=== PATIENT | male | born 1935 | race Caucasian/White ===

== ENCOUNTER 2016-05-29 10:49 | Outpatient (CLI) | payer MEDICARE, OTHER ==
[2016-01-20 10:56] VITALS: BP 135/74
[2016-05-29 11:17] LABS: BASOPHILS % 0.2 (0.0-1.5); EOSINOPHILS % 3.2 % (0.0-6.8); LYMPHOCYTES # 0.8 # k/uL (0.6-4.0); MEAN CORPUSCULAR HEMOGLOBIN 34.5 pg (28.0-34.0); MONOCYTES # 0.4 # k/uL (0.0-0.9); MONOCYTES % 9.5 % (0.0-11.0); NEUTROPHILS # 3.3 # k/uL (1.4-7.7)
[2016-05-29 11:47] LABS: eGFR (African) > 60; eGFR (Non-African) > 60
== END 2016-05-29 10:50 ==
LOC: LAB 10:49
PROVIDERS: ATTEND Internal Medicine Gastroenterology
DX: R18.8 Other ascites (principal); K74.60 Unspecified cirrhosis of liver; K72.90 Hepatic failure, unspecified without coma
CPT/HCPCS: 36415; 80053; 85025

== ENCOUNTER 2016-07-05 12:00 | Outpatient (CLI) | payer MEDICARE, OTHER ==
[2016-01-20 10:56] VITALS: BP 135/74
[2016-07-05 12:14] LABS: BASOPHILS % 0.2 (0.0-1.5); EOSINOPHILS % 1.9 % (0.0-6.8); LYMPHOCYTES # 0.7 # k/uL (0.6-4.0); MEAN CORPUSCULAR HEMOGLOBIN 33.8 pg (28.0-34.0); MONOCYTES # 0.3 # k/uL (0.0-0.9); MONOCYTES % 6.6 % (0.0-11.0); NEUTROPHILS # 3.8 # k/uL (1.4-7.7)
[2016-07-05 12:42] LABS: eGFR (African) 41; eGFR (Non-African) 34
== END 2016-07-05 12:01 ==
LOC: LAB 12:00
PROVIDERS: ATTEND Internal Medicine Gastroenterology
DX: K74.60 Unspecified cirrhosis of liver (principal); R18.8 Other ascites; E87.1 Hypo-osmolality and hyponatremia; K72.90 Hepatic failure, unspecified without coma
CPT/HCPCS: 36415; 80053; 85025

== ENCOUNTER 2016-07-16 10:07 | Outpatient (CLI) | payer MEDICARE, OTHER ==
[2016-01-20 10:56] VITALS: BP 135/74
[2016-07-16 11:00] LABS: eGFR (African) > 60; eGFR (Non-African) > 60
== END 2016-07-16 10:10 ==
LOC: LAB 10:07
PROVIDERS: ATTEND Internal Medicine Nephrology
DX: E87.1 Hypo-osmolality and hyponatremia (principal)
CPT/HCPCS: 36415; 80053

== ENCOUNTER 2016-07-20 12:33 | Outpatient (CLI) | payer OTHER ==
[2016-01-20 10:56] VITALS: BP 135/74
[2016-07-20 13:31] LABS: eGFR (African) > 60; eGFR (Non-African) > 60
== END 2016-07-20 12:34 ==
LOC: LAB 12:33
PROVIDERS: ATTEND Family Medicine
DX: E87.1 Hypo-osmolality and hyponatremia (principal)
CPT/HCPCS: 36415; 80048

== ENCOUNTER 2016-07-27 12:59 | Outpatient (CLI) | payer OTHER ==
[2016-01-20 10:56] VITALS: BP 135/74
[2016-07-27 13:50] LABS: eGFR (African) > 60; eGFR (Non-African) > 60
== END 2016-07-27 13:00 ==
LOC: LAB 12:59
PROVIDERS: ATTEND Family Medicine
DX: E87.1 Hypo-osmolality and hyponatremia (principal)
CPT/HCPCS: 36415; 80053

== ENCOUNTER 2016-08-03 14:38 | Outpatient (CLI) | payer OTHER ==
[2016-01-20 10:56] VITALS: BP 135/74
[2016-08-03 15:35] LABS: eGFR (African) > 60; eGFR (Non-African) > 60
[2016-08-03 16:30] LABS: MEAN CORPUSCULAR HEMOGLOBIN 35.5 pg (28.0-34.0); MEAN CORPUSCULAR VOLUME 98.9 fl (80.0-100.0)
[2016-08-03 17:03] LABS: BASOPHILS % 1 % (0-2); EOSINOPHILS % 4 % (0-7); MONOCYTES % 8 % (0-11); SEGMENTED NEUTROPHILS % 64 % (39-79)
== END 2016-08-03 14:40 ==
LOC: LAB 14:38
PROVIDERS: ATTEND Family Medicine
DX: E87.1 Hypo-osmolality and hyponatremia (principal)
CPT/HCPCS: 36415; 80053; 85025

== ENCOUNTER 2016-08-06 17:10 | Outpatient (CLI) | payer OTHER ==
[2016-01-20 10:56] VITALS: BP 135/74
[2016-08-06 17:44] LABS: eGFR (African) > 60; eGFR (Non-African) > 60
== END 2016-08-06 17:15 | disposition home or self-care (01) ==
LOC: LAB 17:10
PROVIDERS: ATTEND Family Medicine
DX: E87.1 Hypo-osmolality and hyponatremia (principal); K76.0 Fatty (change of) liver, not elsewhere classified; R74.0 Nonspecific elevation of levels of transaminase and lactic acid dehydrogenase [LDH]
CPT/HCPCS: 36415; 80053

== ENCOUNTER 2016-08-07 15:33 | Outpatient (CLI) | payer OTHER ==
[2016-01-20 10:56] VITALS: BP 135/74
[2016-08-07 16:49] LABS: APPEARANCE,URINE Clear (CLEAR); COLOR,URINE Yellow (YELLOW); OCCULT BLOOD,URINE Negative (NEGATIVE); PH URINE 6.5 (5.0 - 8.0)
[2016-08-07 17:06] LABS: eGFR (African) > 60; eGFR (Non-African) > 60
== END 2016-08-07 15:34 ==
LOC: NEPHRO 15:33
PROVIDERS: ATTEND Internal Medicine Nephrology
DX: E87.1 Hypo-osmolality and hyponatremia (principal)
CPT/HCPCS: 36415; 80053; 81002; 83930; 83935; 84133; 84300; G0463

== ENCOUNTER 2016-09-24 14:16 | Outpatient (CLI) | payer OTHER ==
[2016-01-20 10:56] VITALS: BP 135/74
[2016-09-24 15:04] LABS: eGFR (African) > 60; eGFR (Non-African) > 60
== END 2016-09-24 14:20 ==
LOC: LAB 14:16
PROVIDERS: ATTEND Family Medicine
DX: E78.00 Pure hypercholesterolemia, unspecified (principal); E87.1 Hypo-osmolality and hyponatremia
CPT/HCPCS: 36415; 80048; 80061

== ENCOUNTER 2016-10-22 14:19 | Outpatient (CLI) | payer OTHER ==
[2016-01-20 10:56] VITALS: BP 135/74
[2016-10-22 15:05] LABS: eGFR (African) > 60; eGFR (Non-African) > 60
== END 2016-10-22 14:20 ==
LOC: LAB 14:19
PROVIDERS: ATTEND Family Medicine
DX: E87.1 Hypo-osmolality and hyponatremia (principal); I10 Essential (primary) hypertension; R18.8 Other ascites; R74.0 Nonspecific elevation of levels of transaminase and lactic acid dehydrogenase [LDH]
CPT/HCPCS: 36415; 80053

== ENCOUNTER 2016-11-06 10:14 | Outpatient (CLI) | payer OTHER ==
[2016-01-20 10:56] VITALS: BP 135/74
[2016-11-06 10:26] LABS: BASOPHILS % 0.3 (0.0-1.5); EOSINOPHILS % 1.6 % (0.0-6.8); MONOCYTES % 4.1 % (0.0-11.0); NEUTROPHILS # 7.5 # k/uL (1.4-7.7)
[2016-11-06 10:33] LABS: eGFR (African) > 60; eGFR (Non-African) > 60
== END 2016-11-06 10:15 ==
LOC: LABRHC 10:14
PROVIDERS: ATTEND Family Medicine
DX: K75.9 Inflammatory liver disease, unspecified (principal); R74.0 Nonspecific elevation of levels of transaminase and lactic acid dehydrogenase [LDH]; I10 Essential (primary) hypertension; K72.10 Chronic hepatic failure without coma
CPT/HCPCS: 80053; 85025; 85610; 85730

== ENCOUNTER 2016-11-08 12:52 | Emergency (ER) | payer OTHER ==
[2016-11-08] MEDS ORDERED: INSULIN REGULAR, HUMAN 100 UNIT/ML 3ML VIAL IV ONE (13:10)
--- NOTE | 2016-11-08 13:25 | ED Physician Documentation ---
General Adult - HISTORIAN Historian: patient, spouse - HPI Stated Complaint: ? seizure Chief Complaint: General Adult Onset: days ago (7) Timing: better Severity: moderate Further Comments: yes (Pt is an 81 yo male with liver failure, chronic hyponatremia, hx MS, who has been having shaking (? seizure) activity, followed by stiffening on three occasions in the past week. Pt had hx seizures in childhood, but had not had them as an adult. Pt was seen at [facility] 2 days ago for paracentesis.) - ROS CONST: weakness EYES/ENT: none CVS/RESP: none GI/: none MS/SKIN/LYMPH: other (poorly healing wound L knee) NEURO/PSYCH: other (confusion) - PAST HX Past History: AMI, hypertension, other (CAD, Hyponatremia, Memory impairment, chronic liver failure) Surgeries/Procedures: cardiac bypass (2005), other (renal artery stent) Allergies/Adverse Reactions: Allergies Allergy/AdvReac Type Severity Reaction Status Date / Time Penicillins AdvReac Intermediate Unknown Verified 01/20/16 10:56 Home Medications: Ambulatory Orders Medication Instructions Recorded Valsartan [Diovan] 320 mg PO DAILY #30 u2 05/09/15 - SOCIAL HX Smoking History: other (smoking hx unknown) - FAMILY HX Family History: No (Parents both age 92, healthy late in life) - VITAL SIGNS Vital Signs: Vital Signs Temp Pulse Resp BP Pulse Ox 135/74 01/20/16 12:00 - REVIEWED ASSESSMENTS Nursing Assessment Reviewed: Yes Vitals Reviewed: Yes Progress - Progress Progress: NS 500 cc IVF Urine out = 1,050 ml with peñaloza cath Transfer to [facility] Dr[address] Juárez. - EKG/XRAY/CT EKG: NSR (HR=73; non-specific ST changes.) XRAY: chest (Left lung base presumed scarring. No gross effusion.) ED Results Lab/Radiology - Orders Orders: ED Orders Category Date Time Status Place IV Lock 1T Care 11/08/16 12:56 Active BNP [NT-proBNP] Stat Lab 11/08/16 Ordered CBC/PLATELET/DIFF Routine Lab 11/08/16 Ordered CMP Routine Lab 11/08/16 Ordered PT-INR Routine Lab 11/08/16 Ordered PTT Routine Lab 11/08/16 Ordered UA [URINALYSIS] Routine Lab 11/08/16 Ordered Insulin Regular, Human [Humulin R] Med 11/08/16 13:10 Discontinued 10 unit IV NOW ONE General Adult Physical Exam - PHYSICAL EXAM GENERAL APPEARANCE: moderate distress EENT: pharynx normal NECK: normal inspection, supple RESPIRATORY: no resp distress, chest non-tender, breath sounds normal CVS: reg rate & rhythm, heart sounds normal ABDOMEN: other (distended c/w ascites) BACK: normal inspection SKIN: other (poorly healing wound L knee; abrasion upper back; early decubitus ulcer) EXTREMITIES: edema, other (poorly healing wound L knee) NEURO: motor nml, sensation nml Discharge Clincal Impression: Liver failure, elevated BNP, ? seizure, hyponatremia, elevated troponin Referrals: Sujit Venegas MD [Primary Care Provider] - 2 Days Home Medications: Ambulatory Orders Valsartan [Diovan] 320 mg PO DAILY #30 u2 05/09/15 Condition: Fair Disposition: 02 XFER SHT-TRM HOSP Decision to Admit: NO Decision Time: 15:08
[2016-11-08 13:39] LABS: BASOPHILS % 1.2 (0.0-1.5); EOSINOPHILS % 1.9 % (0.0-6.8); MEAN CORPUSCULAR HEMOGLOBIN 34.1 pg (28.0-34.0); MEAN CORPUSCULAR VOLUME 99.1 fl (80.0-100.0); MONOCYTES % 5.4 % (0.0-11.0); NEUTROPHILS # 7.2 # k/uL (1.4-7.7)
[2016-11-08] MEDS ORDERED: 0.9 % SODIUM CHLORIDE 500 ML IV ONE ×2 (13:39)
[2016-11-08 13:53] LABS: eGFR (African) > 60; eGFR (Non-African) > 60
[2016-11-08 14:05] LABS: APPEARANCE,URINE Clear (CLEAR); COLOR,URINE Amber (YELLOW); OCCULT BLOOD,URINE Negative (NEGATIVE); PH URINE 5.5 (5.0 - 8.0)
[2016-11-08 15:42] VITALS: BP 84/50
--- NOTE | 2016-11-08 18:58 | Diagnostic Imaging Report ---
LUCIAN CARDOSO [facility] [address] [facility].[address] [id number] Report Submission Date: Nov 08, 2016 3:00:14 PM CDT Patient Study Name: ED DONA Date: Nov 08, 2016 2:36:43 PM CDT Modality Type: CR Gender: M Description: CHEST : 33 Institution: [facility] Physician: LUCIAN CARDOSO Examination: Portable chest History: Chest discomfort Findings: Single view of the chest demonstrates a normal cardiac silhouette. Tortuosity of the thoracic aorta. Sternotomy wires and coronary vascular surgical changes. Elevation of the hemidiaphragm bilaterally. Colonic interposition involving the right diaphragm. Linear scarring at the left lung base. Right lung field without focal infiltrate. No effusion. Osseous structures are appropriate for age. Impression: Left lung base presumed scarring. No gross effusion. Electronically signed on Nov 08, 2016 3:00:14 PM CDT by: Peter HERRING
== END 2016-11-08 15:38 | disposition short-term general hospital (02) ==
LOC: ED 12:52
DX: K72.90 Hepatic failure, unspecified without coma (principal); E87.1 Hypo-osmolality and hyponatremia
CPT/HCPCS: 51701; 71010; 80053; 81002; 82550; 82553; 83880; 84484; 85025; J7060; 96360; 99284; S1016